=== PATIENT | female | born 1990 | race American Indian/Alaskan Native ===

== ENCOUNTER 2018-09-12 22:41 | Emergency (ER) | payer MEDICAID ==
[2018-09-12 23:05] VITALS: BP 117/84
[2018-09-12] MEDS ORDERED: MOTRIN PO ONE (23:43)
[2018-09-12 23:48] LABS: Basophils % (Auto) 0.2 % (0.0-1.8); Hematocrit 37.5 % (30.3-42.9); Hemoglobin 12.7 gm/dl (10.1-14.3); Lymphocytes # (Auto) 0.7 K/mm3 (1.2-5.4); Lymphocytes % (Auto) 10.5 % (13.4-35.0); Mean Corpuscular HGB Conc 34 % (30-34); Mean Corpuscular Volume 89 fl (79-97); Monocytes # (Auto) 0.6 K/mm3 (0.0-0.8); Monocytes % (Auto) 8.4 % (0.0-7.3); Platelet Count 174 K/mm3 (140-440)
[2018-09-13 00:03] LABS: Alanine Aminotransferase 34 units/L (7-56); Albumin 4.6 g/dL (3.9-5); BUN/Creatinine Ratio 16; Blood Urea Nitrogen 14 mg/dL (7-17); Calcium 9.4 mg/dL (8.4-10.2); Hemolysis Index 3
[2018-09-13 00:41] LABS: Bilirubin,Urine NEG (Negative); Blood,Urine NEG (Negative); Color,Urine Yellow (Yellow); Mucus,Urine 2+ /HPF; Urobilinogen,Urine < 2.0 mg/dL (<2.0)
[2018-09-13] MEDS ORDERED: BENADRYL IV ONE (00:54)
[2018-09-13] MEDS ORDERED: TORADOL IV ONE (00:54)
[2018-09-13] MEDS ORDERED: DECADRON IV ONE (00:54)
[2018-09-13] MEDS ORDERED: REGLAN IV ONE (00:54)
[2018-09-13] MEDS ORDERED: NACL 0.9% 1000 ML 1,000 ML IV ONE (00:54)
--- NOTE | 2018-09-13 01:32 | Emergency Department Report ---
ED General Adult HPI - General Chief complaint: Pain General Stated complaint: FEVER MIGRAINE Time Seen by Provider: 09/13/18 00:53 Source: patient Mode of arrival: Ambulatory Limitations: No Limitations - History of Present Illness Initial comments: Patient is a 27-year-old female with history of lupus who presents with generalized body aches and fever past 2 days states sick child at home with strep throat patient complains of cough nonproductive sore throat and low back pain fevers controlled by Tylenol denies a vomiting patient is tolerating by mouth intake patient has key maker patient has primary care doctor however has been unable to see primary care doctors until next week pain as described as body aches /10 pain exacerbated by activity pain is relieved by rest patient states she started having a migraine headache this afternoon which is typical for lupus flare Onset/Timin -: days(s) Location: head, back, lower extremity Radiation: extremity Severity scale (0 -10): 9 Quality: burning, aching Consistency: constant Improves with: rest Worsens with: movement, other (activity ) Associated Symptoms: cough, fever/chills, malaise, other (back pain ) Treatments Prior to Arrival: none - Related Data Previous Rx's Medication Instructions Recorded Last Taken Type Ketorolac [Toradol] 10 mg PO Q8H PRN #9 tablet 09/13/18 Unknown Rx Metoclopramide [Reglan] 10 mg PO Q6H PRN #30 tablet 09/13/18 Unknown Rx Nitrofurantoin [place]/M-Cryst 100 mg PO Q12HR 7 Days #14 capsule 09/13/18 Unknown Rx [Macrobid CAP] diphenhydrAMINE [Benadryl CAP] 25 mg PO Q6HR PRN #30 capsule 09/13/18 Unknown Rx Allergies Allergy/AdvReac Type Severity Reaction Status Date / Time amoxicillin Allergy Anaphylaxis Verified 09/12/18 22:47 latex Allergy Hives Verified 09/12/18 22:47 ED Review of Systems ROS: Stated complaint: FEVER MIGRAINE Other details as noted in HPI Constitutional: chills, fever Eyes: denies: eye pain, eye discharge, vision change ENT: congestion Respiratory: cough Cardiovascular: denies: chest pain, palpitations Endocrine: no symptoms reported Gastrointestinal: denies: abdominal pain, nausea, vomiting, diarrhea Genitourinary: denies: urgency, dysuria, discharge Musculoskeletal: back pain, myalgia Skin: denies: rash, lesions Neurological: headache. denies: weakness, numbness, paresthesias, confusion, abnormal gait, vertigo Psychiatric: denies: anxiety, depression Hematological/Lymphatic: denies: easy bleeding, easy bruising ED Past Medical Hx - Past Medical History Previous Medical History?: Yes Hx Seizures: Yes Additional medical history: Lupus, Endometriosis, BRACA 2 gene - Surgical History Past Surgical History?: Yes Additional Surgical History: Bilateral Salpigectomy, Bilateral Ovary removal, Breast reduction, Left Lumpectomy, - Social History Smoking Status: Never Smoker Substance Use Type: None - Medications Home Medications: Home Medications Medication Instructions Recorded Confirmed Last Taken Type Ketorolac [Toradol] 10 mg PO Q8H PRN #9 tablet 09/13/18 Unknown Rx Metoclopramide [Reglan] 10 mg PO Q6H PRN #30 tablet 09/13/18 Unknown Rx Nitrofurantoin [place]/M-Cryst 100 mg PO Q12HR 7 Days #14 capsule 09/13/18 Unknown Rx [Macrobid CAP] diphenhydrAMINE [Benadryl CAP] 25 mg PO Q6HR PRN #30 capsule 09/13/18 Unknown Rx ED Physical Exam - General Limitations: No Limitations General appearance: alert, in no apparent distress - Head Head exam: Present: atraumatic, normocephalic - Eye Eye exam: Present: normal appearance, PERRL, EOMI. Absent: conjunctival injection, nystagmus Pupils: Present: normal accommodation - ENT ENT exam: Present: normal orophraynx, mucous membranes moist, TM's normal bilat erally, normal external ear exam - Neck Neck exam: Present: normal inspection, full ROM. Absent: tenderness, meningismus, lymphadenopathy, thyromegaly - Respiratory Respiratory exam: Present: normal lung sounds bilaterally. Absent: respiratory distress, wheezes, stridor, chest wall tenderness - Cardiovascular Cardiovascular Exam: Present: regular rate, normal rhythm, normal heart sounds. Absent: systolic murmur, diastolic murmur, rubs, gallop - GI/Abdominal GI/Abdominal exam: Present: soft, distended, tenderness, normal bowel sounds. Absent: guarding, rebound, rigid, bruit, hernia - Rectal Rectal exam: Present: deferred - Extremities Exam Extremities exam: Present: normal inspection, full ROM, normal capillary refill - Back Exam Back exam: Present: normal inspection, full ROM, tenderness. Absent: CVA tenderness (R), CVA tenderness (L), muscle spasm, paraspinal tenderness - Neurological Exam Neurological exam: Present: alert, oriented X3, CN II-XII intact, normal gait. Absent: reflexes normal - Psychiatric Psychiatric exam: Present: normal affect, normal mood - Skin Skin exam: Present: warm, dry, intact, normal color. Absent: rash ED Course Vital Signs 09/12/18 09/13/18 22:56 01:18 Temperature 102.5 F H Pulse Rate 100 H Respiratory 18 12 Rate Blood Pressure 117/84 O2 Sat by Pulse 98 Oximetry ED Medical Decision Making - Lab Data Result diagrams: 09/12/18 23:31 09/12/18 23:31 Labs 09/12/18 09/12/18 09/12/18 23:31 23:31 23:31 WBC 6.9 RBC 4.20 Hgb 12.7 Hct 37.5 MCV 89 MCH 30 MCHC 34 RDW 16.0 H Plt Count 174 Lymph % (Auto) 10.5 L [place] % (Auto) 8.4 H Eos % (Auto) 0.0 Baso % (Auto) 0.2 Lymph # 0.7 L [place] # 0.6 Eos # 0.0 Baso # 0.0 Seg Neutrophils % 80.9 H Seg Neutrophils # 5.6 Sodium 140 Potassium 3.8 Chloride 100.3 Carbon Dioxide 26 Anion Gap 18 BUN 14 Creatinine 0.9 Estimated GFR > 60 BUN/Creatinine Ratio 16 Glucose 112 H Calcium 9.4 Total Bilirubin 0.30 AST 36 ALT 34 Alkaline Phosphatase 88 Total Protein 8.4 H Albumin 4.6 Albumin/Globulin Ratio 1.2 HCG, Qual Negative Urine Color Urine Turbidity Urine pH Ur Specific [place] Urine Protein Urine Glucose (UA) Urine Ketones Urine Blood Urine Nitrite Urine Bilirubin Urine Urobilinogen Ur Leukocyte Esterase Urine WBC (Auto) Urine RBC (Auto) U Epithel Cells (Auto) Urine Mucus 09/13/18 00:28 WBC RBC Hgb Hct MCV MCH MCHC RDW Plt Count Lymph % (Auto) [place] % (Auto) Eos % (Auto) Baso % (Auto) Lymph # [place] # Eos # Baso # Seg Neutrophils % Seg Neutrophils # Sodium Potassium Chloride Carbon Dioxide Anion Gap BUN Creatinine Estimated GFR BUN/Creatinine Ratio Glucose Calcium Total Bilirubin AST ALT Alkaline Phosphatase Total Protein Albumin Albumin/Globulin Ratio HCG, Qual Urine Color Yellow Urine Turbidity Clear Urine pH 5.0 Ur Specific [place] 1.036 H Urine Protein 30 mg/dl Urine Glucose (UA) Neg Urine Ketones Neg Urine Blood Neg Urine Nitrite Neg Urine Bilirubin Neg Urine Urobilinogen < 2.0 Ur Leukocyte Esterase Neg Urine WBC (Auto) 15.0 H Urine RBC (Auto) 2.0 U Epithel Cells (Auto) 2.0 Urine Mucus 2+ - Medical Decision Making Patient refuses chest x-ray involves no chest pain no shortness of breath no wheezing cough is nonproductive UA pos for WBC , patient resolved to 03/08 plan dc to home with rx for benadryl, reglan prn headache, macrobid po bid x 7 days pt will follow up with pcp and rhuematology as scheduled, pt dc'd to home in stable condition at this time. Critical care attestation.: If time is entered above; I have spent that time in minutes in the direct care of this critically ill patient, excluding procedure time. ED Disposition Clinical Impression: UTI (urinary tract infection) Qualifiers: Urinary tract infection type: acute cystitis Hematuria presence: without hematuria Qualified Code(s): N30.00 - Acute cystitis without hematuria Headache Qualifiers: Headache type: unspecified Headache chronicity pattern: acute headache Intractability: not intractable Qualified Code(s): R51 - Headache Disposition: DC-01 TO HOME OR SELFCARE Is pt being admited?: No Does the pt Need Aspirin: No Condition: Stable Instructions: Urinary Tract Infection in Women (ED), Acute Headache (ED) Additional Instructions: follow up with your [facility] pcp and rhuematologist as scheduled Prescriptions: diphenhydrAMINE [Benadryl CAP] 25 mg PO Q6HR PRN #30 capsule PRN Reason: Headache Nitrofurantoin [place]/M-Cryst [Macrobid CAP] 100 mg PO Q12HR 7 Days #14 capsule Metoclopramide [Reglan] 10 mg PO Q6H PRN #30 tablet PRN Reason: prn headache Ketorolac [Toradol] 10 mg PO Q8H PRN #9 tablet PRN Reason: Pain headache Referrals: RYAN PILLAI MD [Primary Care Provider] - 3-5 Days Forms: Work/School Release Form(ED) Time of Disposition: 01:40
== END 2018-09-13 02:30 | disposition home or self-care (01) ==
LOC: ED 22:41
DX: N39.0 Urinary tract infection, site not specified (principal); R51 Headache; M32.9 Systemic lupus erythematosus, unspecified; R05 Cough; Z87.39 Personal history of other diseases of the musculoskeletal system and connective tissue; Z90.722 Acquired absence of ovaries, bilateral; Z98.86 Personal history of breast implant removal; Z88.1 Allergy status to other antibiotic agents; Z91.040 Latex allergy status; Z79.899 Other long term (current) drug therapy
CPT/HCPCS: 36415; 80053; 81001; 84703; 85025; 87086; 96374; 96375; 99283; J1100; J1200; J1885; J2765; J7030; 96361

== ENCOUNTER 2018-12-04 04:36 | Emergency (ER) | payer MEDICAID, OTHER ==
--- NOTE | 2018-12-04 06:06 | Emergency Department Report ---
ED General Adult HPI - General Chief complaint: Headache Stated complaint: FEVER SORE THROAT HEADACHE Source: patient Mode of arrival: Ambulatory Limitations: No Limitations - History of Present Illness Initial comments: Patient is a 27-year-old -[place] female with a history of breast cancer, cervical and uterine cancer in remission who presents to the ED with complaint of acute onset persistent severe painful swollen right mandibular gums with painful right mandibular premolar and molar teeth for the last 3 days. Patient denies fever, chills, nausea, vomiting, dizziness, headache, chest pain, shortness of breath, cough, or syncope. Patient states that the pain radiates to her right ear. MD Complaint: right mandibular premolar toothache; swollen gums; right ear pain -: Sudden, days(s) (3) Location: face, mouth Radiation: non-radiation Severity scale (0 -10): 7 Quality: aching, sharp Consistency: constant Improves with: none Worsens with: none Associated Symptoms: denies other symptoms. denies: confusion, chest pain, cough, diaphoresis, fever/chills, headaches, loss of appetite, malaise, seizure, shortness of breath, syncope, weakness Treatments Prior to Arrival: none - Related Data Previous Rx's Medication Instructions Recorded Last Taken Type Ketorolac [Toradol] 10 mg PO Q8H PRN #9 tablet 09/13/18 Unknown Rx Metoclopramide [Reglan] 10 mg PO Q6H PRN #30 tablet 09/13/18 Unknown Rx Nitrofurantoin [place]/M-Cryst 100 mg PO Q12HR 7 Days #14 capsule 09/13/18 Unknown Rx [Macrobid CAP] diphenhydrAMINE [Benadryl CAP] 25 mg PO Q6HR PRN #30 capsule 09/13/18 Unknown Rx Acetaminophen/Codeine [Tylenol 1 tab PO Q6H PRN #15 tab 12/04/18 Unknown Rx /Codeine # 3 tab] Clindamycin [Clindamycin CAP] 300 mg PO Q8HR #60 capsule 12/04/18 Unknown Rx Allergies Allergy/AdvReac Type Severity Reaction Status Date / Time amoxicillin Allergy Anaphylaxis Verified 09/12/18 22:47 latex Allergy Hives Verified 09/12/18 22:47 NSAIDS (Non-Steroidal Allergy Unknown Verified 12/04/18 04:42 Anti-Inflamma ED Review of Systems ROS: Stated complaint: FEVER SORE THROAT HEADACHE Other details as noted in HPI Constitutional: denies: chills, fever Eyes: denies: eye pain, eye discharge, vision change ENT: ear pain (right ear pain), dental pain. denies: throat pain Respiratory: denies: cough, shortness of breath, wheezing Cardiovascular: denies: chest pain, palpitations Endocrine: no symptoms reported Gastrointestinal: denies: abdominal pain, nausea, diarrhea Genitourinary: denies: urgency, dysuria, discharge Musculoskeletal: denies: back pain, joint swelling, arthralgia Skin: denies: rash, lesions Neurological: denies: headache, weakness, paresthesias Psychiatric: denies: anxiety, depression Hematological/Lymphatic: denies: easy bleeding, easy bruising ED Past Medical Hx - Past Medical History Previous Medical History?: Yes Hx of Cancer: Yes (breast) Hx Seizures: Yes Additional medical history: Lupus, Endometriosis, BRACA 2 gene - Surgical History Past Surgical History?: Yes Additional Surgical History: Bilateral Salpigectomy, Bilateral Ovary removal, Breast reduction right, Left Lumpectomy, Parital hyster - Social History Smoking Status: Never Smoker Substance Use Type: None - Medications Home Medications: Home Medications Medication Instructions Recorded Confirmed Last Taken Type Ketorolac [Toradol] 10 mg PO Q8H PRN #9 tablet 09/13/18 Unknown Rx Metoclopramide [Reglan] 10 mg PO Q6H PRN #30 tablet 09/13/18 Unknown Rx Nitrofurantoin [place]/M-Cryst 100 mg PO Q12HR 7 Days #14 capsule 09/13/18 Unknown Rx [Macrobid CAP] diphenhydrAMINE [Benadryl CAP] 25 mg PO Q6HR PRN #30 capsule 09/13/18 Unknown Rx Acetaminophen/Codeine [Tylenol 1 tab PO Q6H PRN #15 tab 12/04/18 Unknown Rx /Codeine # 3 tab] Clindamycin [Clindamycin CAP] 300 mg PO Q8HR #60 capsule 12/04/18 Unknown Rx ED Physical Exam - General Limitations: No Limitations General appearance: alert, in no apparent distress - Head Head exam: Present: atraumatic, normocephalic - Eye Eye exam: Present: normal appearance, PERRL, EOMI Pupils: Present: normal accommodation - ENT ENT exam: Present: mucous membranes moist, TM's normal bilaterally, normal external ear exam, other (swollen, severely tender right lateral mandibular gingiva, severely tender right premolar and molar teeth) - Neck Neck exam: Present: normal inspection, full ROM, lymphadenopathy - Respiratory Respiratory exam: Present: normal lung sounds bilaterally. Absent: respiratory distress, wheezes, chest wall tenderness, accessory muscle use, decreased breath sounds - Cardiovascular Cardiovascular Exam: Present: regular rate, normal rhythm, normal heart sounds. Absent: systolic murmur, diastolic murmur, rubs, gallop - GI/Abdominal GI/Abdominal exam: Present: soft, normal bowel sounds. Absent: distended, tenderness, guarding, hyperactive bowel sounds, organomegaly - Extremities Exam Extremities exam: Present: normal inspection, full ROM, normal capillary refill - Back Exam Back exam: Present: normal inspection, full ROM. Absent: CVA tenderness (L), muscle spasm - Neurological Exam Neurological exam: Present: alert, oriented X3, CN II-XII intact, normal gait, reflexes normal - Psychiatric Psychiatric exam: Present: normal affect, normal mood - Skin Skin exam: Present: warm, dry, intact, normal color. Absent: rash ED Course - Reevaluation(s) Reevaluation #1: 12/04/18 06:07 This is a 27-year-old -[place] female who presented to the ED with acute onset persistent severe right mandibular premolar and molar toothaches with swollen gums for the last 3 days. In the ED, patient is alert and oriented 3 and is not in distress. Patient was discharged home on antibiotics and pain medications and advised to follow-up with her dentist or primary care physician in 7-10 days for reevaluation or return to the ED immediately if symptoms get worse. ED Medical Decision Making - Medical Decision Making This is a 27-year-old -[place] female who presented to the ED with acute onset persistent severe right mandibular premolar and molar toothaches with swollen gums for the last 3 days. In the ED, patient is alert and oriented 3 and is not in distress. Patient was discharged home on antibiotics and pain medications and advised to follow-up with her dentist or primary care physician in 7-10 days for reevaluation or return to the ED immediately if symptoms get worse. - Differential Diagnosis dental abscess; gingivitis; dental caries Critical care attestation.: If time is entered above; I have spent that time in minutes in the direct care of this critically ill patient, excluding procedure time. ED Disposition Clinical Impression: Dental caries, Acute gingivitis, Dental abscess Disposition: TO HOME OR SELFCARE Is pt being admited?: No Does the pt Need Aspirin: No Condition: Stable Instructions: Dental Abscess (ED), Dental Caries (ED), Gingivitis (ED) Additional Instructions: Take medications with food, drink plenty of fluids and follow-up with your primary care physician in 7-10 days for reevaluation. Return to the ED immediately if symptoms get worse. Prescriptions: Clindamycin [Clindamycin CAP] 300 mg PO Q8HR #60 capsule Acetaminophen/Codeine [Tylenol /Codeine # 3 tab] 1 tab PO Q6H PRN #15 tab PRN Reason: Pain , Severe (7-10) Referrals: PRIMARY CARE, [Primary Care Provider] - 3-5 Days Time of Disposition: 06:02 Print Language: [place]
[2018-12-04 06:49] VITALS: BP 122/75
== END 2018-12-04 06:50 | disposition home or self-care (01) ==
LOC: ED 04:36
DX: K04.7 Periapical abscess without sinus (principal); K02.9 Dental caries, unspecified; K05.00 Acute gingivitis, plaque induced; M32.9 Systemic lupus erythematosus, unspecified; Z88.1 Allergy status to other antibiotic agents; Z91.040 Latex allergy status; Z88.7 Allergy status to serum and vaccine; Z79.899 Other long term (current) drug therapy; Z85.3 Personal history of malignant neoplasm of breast; Z90.711 Acquired absence of uterus with remaining cervical stump
CPT/HCPCS: 99282